=== PATIENT | female | born 1940 | race Caucasian/White ===

== ENCOUNTER → 2018-04-16 | Outpatient (CLI) | payer MEDICARE, OTHER | LOC: M.RAD 04-02 13:46 | DX: Z12.31 Encounter for screening mammogram for malignant neoplasm of breast (principal); Z13.820 Encounter for screening for osteoporosis; M85.89 Other specified disorders of bone density and structure, multiple sites; Z78.0 Asymptomatic menopausal state ==

== ENCOUNTER → 2018-12-23 | Outpatient (CLI) | payer MEDICARE, OTHER ==
--- NOTE | 2018-12-24 11:11 | PF ---
[address] [address] PULMONARY FUNCTION REPORT Name: MIKI YANG Diamond Room: [facility]#: [id number] Admission: 12/23/18 Attend Phys: Faiza Cedillo Discharge: Date of : 44 Report #: [id number] THIS REPORT FOR: //name// CC: Faiza Lance DO DATE OF SERVICE: 12/23/2018 ATTENDING PHYSICIAN: Marta Lance DO A 78-year-old female with cough and wheezing, full pulmonary function studies are indicated. Abnormalities suggest moderate obstructive defect. On spirometry, there was no improvement after single dose of inhaled bronchodilator. Best results show an FEV1 of 1.35 and FVC of 2.10 liters, ratio 63%, FEV1 72% of predicted. Mild decrease in mid flow rates is noted. Lung volumes performed via plethysmography were within normal limits. Total lung capacity is 82% of predicted. Residual volume is only 73% of predicted. Vital capacity is 89% of predicted. Diffusion when corrected for alveolar volume was 127, within normal limits. IMPRESSION: Abnormalities suggest moderate obstructive airways disease. No improvement after single dose of inhaled bronchodilator. No complications to the procedure. <ELECTRONICALLY SIGNED> By: Wojciech Templeton MD 12/24/18 1111 [id number] [id number] frederick Pedroza
== END ==
LOC: M.PUL 11:00
DX: R06.09 Other forms of dyspnea (principal)

== ENCOUNTER → 2019-02-04 | Outpatient (CLI) | payer MEDICARE, OTHER ==
--- NOTE | 2019-02-04 12:52 | 2DMMODE ---
[place] [address] 2 D/M-MODE ECHOCARDIOGRAM Name: MIKI YANG Diamond Room: [facility]#: [id number] Admission: 02/04/19 Attend Phys: Srinath Kaplan MD Discharge: Date of : 44 Date of Service: 02/04/19 1252 Report #: [id number] THIS REPORT FOR: //name// APPROVED REPORT Study performed: 02/04/2019 10:41:58 EXAM: Comprehensive 2D, Doppler, and color-flow Echocardiogram Patient Location: Out-Patient BSA: 1.84 HR: 69 bpm BP: 155/70 mmHg Other Information Study Quality: Good Indications Dyspnea 2D Dimensions IVSd: 10.52 (7-11mm) LVOT Diam: 19.57 (18-24mm) LVDd: 45.51 mm PWd: 10.06 (7-11mm) Ascending Ao: 26.57 (22-36mm) LVDs: 30.55 (25-40mm) Aortic Root: 27.00 mm Volumes Left Atrial Volume (Systole) LA ESV Index: 10.30 mL/m2 Aortic Valve AoV Peak Brian.: 1.20 m/s AO Peak Gr.: 5.80 mmHg LVOT Max P.39 mmHg AO Mean Gr.: 3.25 mmHg LVOT Mean P.39 mmHg LVOT Max V: 0.77 m/s AO V2 VTI: 30.81 cm LVOT Mean V: 0.56 m/s VERONA (VTI): 2.38 cm2 LVOT V1 VTI: 24.39 cm Mitral Valve E/A Ratio: 0.62 MV Decel. Time: 302.50 ms MV E Max Brian.: 0.64 m/s MV PHT: 87.73 ms MVA (PHT): 2.51 [place] [address] 2 D/M-MODE ECHOCARDIOGRAM Name: MIKI YANG Diamond Room: [facility]#: [id number] Admission: 02/04/19 Attend Phys: Srinath Kaplan MD Discharge: Date of : 44 Date of Service: 02/04/19 1252 Report #: [id number] TDI E/Lateral E': 9.14 E/Medial E': 9.14 Medial E' Brian.: 0.07 m/s Lateral E' Brian.: 0.07 m/s Pulmonary Valve PV Peak Brian.: 0.94 m/s PV Peak Gr.: 3.54 mmHg Tricuspid Valve RAP Estimate: 5.00 mmHg TR Peak Gr.: 26.60 mmHg RVSP: 31.60 mmHg PA Pressure: 31.60 mmHg Left Ventricle The left ventricle is normal size. There is normal LV segmental wall motion. There is normal left ventricular wall thickness. Left ventricular systolic function is normal. The left ventricular ejection fraction is within the normal range. LVEF is 60-65%. Grade I - abnormal relaxation pattern. Right Ventricle The right ventricle is normal size. The right ventricular systolic function is normal. Atria The left atrium size is normal. The right atrium size is normal. Aortic Valve The aortic valve is normal in structure. No aortic regurgitation is present. There is no aortic valvular stenosis. Mitral Valve The mitral valve is normal in structure. There is no mitral valve regurgitation noted. No evidence of mitral valve stenosis. Tricuspid Valve The tricuspid valve is normal in structure. Mild tricuspid regurgitation. Pulmonic Valve The pulmonary valve is normal in structure. There is no pulmonic valvular regurgitation[place] [address] 2 D/M-MODE ECHOCARDIOGRAM Name: MIKI YANG Room: [facility]#: [id number] Admission: 02/04/19 Attend Phys: Srinath Kaplan MD Discharge: Date of : 44 Date of Service: 02/04/19 1252 Report #: [id number] The aortic root is normal in size. IVC is normal in size and collapses >50% with inspiration. Pericardium There is no pericardial effusion. <Conclusion> The left ventricle is normal size. There is normal left ventricular wall thickness. Left ventricular systolic function is normal. The left ventricular ejection fraction is within the normal range. LVEF is 60-65%. Grade I - abnormal relaxation pattern. The right ventricle is normal size. The left atrium size is normal. The aortic valve is normal in structure. The mitral valve is normal in structure. The tricuspid valve is normal in structure. IVC is normal in size and collapses >50% with inspiration. There is no pericardial effusion. There is normal LV segmental wall motion. <ELECTRONICALLY SIGNED> By: Gonzales Wright MD, FACC 02/04/19 1252 1252 1252 Gonzales Wright MD, FACC /INF
--- NOTE | 2019-02-04 17:07 | CARDNUC ---
[place] [address] CARDIAC NUCLEAR IMAGING REPORT Name: MIKI YANG Room: [facility]#: [id number] Admission: 02/04/19 Attend Phys: Srinath Kaplan MD Discharge: Date of : 44 Date of Service: 02/04/19 1707 Report #: [id number] THIS REPORT FOR: //name// APPROVED REPORT Imaging Protocol: Rest Tc-99m/Stress Tc-99m 1 day Study performed: 02/04/2019 09:29:44 Indication: Dyspnea Patient Location: Out-Patient Stress Tech: Lena HADLEY Tech:YNES De La Paz Ht: 5 ft 2 in Wt: 183 lbs BSA: 1.84 m2 BMI: 33.46 Medical History Medical History: hypertension, diabetes, ckd Medications: lasix, benicar Allergies: boniva, lisinopril, macrodantin, metformin, penicillin, tresiba insulin Cardiac Risk Factors: age, hypertension, diabetes, former tobacco Exercise History: Indeterminate Resting Data Rest SPECT myocardial perfusion imaging was performed in supine position 30 minutes following the intravenous injection of 10.9 mCi of Tc-99m Sestamibi. Time of rest injection: 075 Date: 02/04/2019 The images were gated to evaluate regional wall motion and calculate left ventricular ejection fraction. Administration Route: IV Administration Site: Right AC Pharmacologic Stress Pharmacologic stress test was performed by injecting Regadenoson 0.4 mg IV push over 10-15 seconds immediately followed by the intravenous injection of 36.0 mCi of Tc-99m Sestamibi. Time of stress injection: 929 Date: 02/04/2019 Administration Route: IV Administration Site: Right AC Gated Stress SPECT was performed 40 minutes after stress injection. The images were gated to evaluate regional [place] [address] CARDIAC NUCLEAR IMAGING REPORT Name: MIKI YANG Room: [facility]#: [id number] Admission: 02/04/19 Attend Phys: Srinath Kaplan MD Discharge: Date of : 44 Date of Service: 02/04/19 1707 Report #: [id number] left ventricular ejection fraction. Prone imaging was performed. Stress Test Details Stress Test: Pharmacologic stress testing performed using 0.4 mg of regadenoson per 5 mL given IV over 10 seconds. Reason for pharmacologic stress test: physical limitation. HR Max Heart Rate (APMHR): 144 bpm Resting HR: 70 bpm Target HR (85% APMHR): 122 bpm Max HR Achieved: 88 bpm % of APMHR: 61 Recovery HR: 77 bpm BP Resting BP: 155/70 mmHg Max BP: 139/62 mmHg Recovery BP: 111/69 mmHg ECG Resting ECG: Sinus Rhythm Stress ECG: Sinus Rhythm ST Change: None Arrhythmia: None Recovery ECG: Sinus Rhythm Recovery ST Change: None Recovery Arrhythmia: None Clinical Reason for Termination: Completed protocol Exercise duration: 0 min sec Exercise capacity: 1 METs The patient tolerated Lexiscan infusion without significant symptoms. Nurse Comments pt tolerated procedure well Stress ECG Conclusion The baseline 12-lead EKG shows sinus rhythm with no significant ST or T wave abnormality. EKGs obtained during and post Lexiscan infusion show sinus rhythm with no significant ST or T wave changes when compared baseline. There were no stress-induced arrhythmias. Study Quality Study: Good Artifact: [place] [address] CARDIAC NUCLEAR IMAGING REPORT Name: MIKI YANG Room: [facility]#: [id number] Admission: 02/04/19 Attend Phys: Srinath Kaplan MD Discharge: Date of : 44 Date of Service: 02/04/19 1707 Report #: [id number] Study Data At rest, the left ventricular ejection fraction was 74%.. Post stress, the left ventricular ejection was 76%.. TID = 0.97. Perfusion Normal left ventricular perfusion. Wall Motion Normal left ventricular wall motion. Nuclear Conclusion ECG Findings: negative for ischemia Clinical Findings: negative for ischemia Nuclear Findings: negative for ischemia Exercise Capacity: not assessed Left Ventricular Function: normal Risk Study: low Myocardial perfusion images show no defect to suggest infarct or ischemia. Left ventricular systolic function appears normal on gated studies. This is a low risk study. <Conclusion> The baseline 12-lead EKG shows sinus rhythm with no significant ST or T wave abnormality. EKGs obtained during and post Lexiscan infusion show sinus rhythm with no significant ST or T wave changes when compared baseline. There were no stress-induced arrhythmias. <ELECTRONICALLY SIGNED> By: Devin Ruiz MD, FACC 02/04/19 170 06 06 Devin Ruiz MD, FACC /INF
== END ==
LOC: M.CRD 01-08 12:55 → M.NUC 01-27 16:57
DX: I07.1 Rheumatic tricuspid insufficiency (principal); Z88.8 Allergy status to other drugs, medicaments and biological substances; Z88.0 Allergy status to penicillin; Z79.899 Other long term (current) drug therapy

== ENCOUNTER → 2019-08-07 | Outpatient (CLI) | payer MEDICARE ==
[2019-08-08 02:07] LABS: IgA 341 mg/dL (64-422); IgG 1055 mg/dL (586-1602); IgM 68 mg/dL (26-217)
[2019-08-10 10:07] LABS: ANA INTERPRETATION Negative (Negative); ANTI-SSA <0.2 AI (0.0-0.9)
== END ==
LOC: M.LAB 14:47
PROVIDERS: ATTEND Psychiatry & Neurology Neuromuscular Medicine
DX: G62.9 Polyneuropathy, unspecified (principal); R26.9 Unspecified abnormalities of gait and mobility; G82.20 Paraplegia, unspecified